=== PATIENT | female | born 1995 | race Caucasian/White ===

== ENCOUNTER → 2017-01-24 | Outpatient (CLI) | payer OTHER ==
--- NOTE | 2017-01-24 11:31 | DIAGNOSTIC IMAGING REPORT ---
LEFT KNEE 4 VIEWS CLINICAL HISTORY: Left knee pain. FINDINGS: AP, lateral, tunnel, and sunrise views of the left knee are obtained. No prior studies are available for comparison at the time of dictation. The skeletal structures are well mineralized. No fracture is seen. The joint spaces are well-maintained. There is no evidence of osteochondral lesion on the tunnel image. No large joint effusion is identified. The overlying soft tissues are normal as visualized. IMPRESSION: No acute bony abnormality is seen in the left knee. Electronically signed by: Jorge Beaulieu M.D. 01/24/2017 11:30 AM Dictated Date/Time: 01/24/2017 11:29 AM
== END | disposition home or self-care (01) ==
LOC: C.RDSM 15:13
PROVIDERS: ATTEND Internal Medicine
DX: M25.562 Pain in left knee (principal)

== ENCOUNTER → 2017-02-04 | Outpatient (CLI) | payer OTHER ==
--- NOTE | 2017-02-04 15:06 | DIAGNOSTIC IMAGING REPORT ---
L LOWER EXT JOINT WITHOUT CLINICAL HISTORY: 21 years-old Female presenting with KNEE PAIN. TECHNIQUE: Multisequence, multiplanar MR imaging of the left knee was performed without the use of intravenous contrast. IV contrast: None. COMPARISON: Plain radiographs of the left knee from 01/24/2017. FINDINGS: Localizer images: Unremarkable. No bony edema. Articular cartilage preserved. Increased intrasubstance signal at the junction of the body and posterior horn of the medial meniscus with possible extension to the tibial articular surface (series 5 image 17 and 18). This is concerning for complex tear. No extrusion of the medial meniscus. Meniscocapsular ligaments grossly intact. Lateral meniscus intact. Anterior and posterior cruciate ligaments intact. Medial collateral ligament intact. Lateral collateral ligament complex including the biceps femoris tendon, fibular collateral ligament, popliteus tendon, and iliotibial band intact. Quadriceps and patellar tendons intact. Normal prepatellar subcutaneous edema. Trace knee joint effusion. Tiny popliteal cyst. Normal muscle bulk and signal intensity. IMPRESSION: 1. Findings concerning for complex focal tear at the junction of the body and posterior horn of the medial meniscus. Electronically signed by: Amado Alcocer M.D. 02/04/2017 2:58 PM Dictated Date/Time: 02/04/2017 2:52 PM
== END | disposition home or self-care (01) ==
LOC: C.MRI 13:51
PROVIDERS: ATTEND Internal Medicine
DX: M25.562 Pain in left knee (principal)